=== PATIENT | male | born 1995 | race African-American/Black ===

== ENCOUNTER 2020-06-02 14:35 | Emergency (ER) | payer OTHER ==
[~2020-06-02] VITALS: Ht 180.3 cm; Wt 73.0 kg
[2020-06-02 14:39] VITALS: BP 115/74
[2020-06-02] MEDS ORDERED: ACETAMINOPHEN 325MG TABLET PO ONE (15:00)
[2020-06-02] MEDS ORDERED: IBUP-2028 MT (15:16)
== END 2020-06-02 15:57 ==
LOC: ER 14:35
DX: M25.571 Pain in right ankle and joints of right foot (principal)
CPT/HCPCS: 73610; 99283